=== PATIENT | male | born 1930 | race Caucasian/White ===

== ENCOUNTER 2016-09-18 09:42 | Day surgery (SDC) | payer MEDICARE, BC ==
[~2016-09-18 09:42] MED LIST: Brimonidine 0.2% Ophth Soln 5 ML Bottle EYERT SCH; Cefuroxime 10 MG/ML SYRINGE EYERT SCH; Lidocaine 1% PF 2 ML SDV INJECT SCH; Pilocarpine 4% Ophth Soln 15 ML Bot EYERT SCH
[2016-09-18] MEDS: Polymyxin B/Trimethoprim 10 ML Bottle EYERT SCH ×3 (10:10→11:56)
--- NOTE | 2016-09-18 10:16 | PCM.PREANE ---
Preanesthetic Assessment - Anesthesia/Transfusion/Family Hx Anesthesia History: Prior Anesthesia Without Reaction Family History of Anesthesia Reaction: No Transfusion History: Prior Transfusion Without Reaction - Review of Systems General: No Symptoms Pulmonary: No Symptoms Cardiovascular: No Symptoms Gastrointestinal: No symptoms Neurological: No Symptoms Other: Reports: Easy Bruising, Thyroid Problems (hyperthyroid) - Physical Assessment NPO Status Date: 09/17/16 NPO Status Time: 00:00 Pulse: 58 O2 Sat by Pulse Oximetry: 97 Respiratory Rate: 16 Blood Pressure: 162/67 Temperature: 36.4 C Height: 1.78 m Weight: 73.119 kg ASA Class: 3 Mental Status: Alert & Oriented x3 Dentition: Reports: Normal Dentition Thyro-Mental Finger Breadths: 3 Mouth Opening Finger Breadths: 3 ROM/Head Extension: Full Lungs: Clear to auscultation, Normal respiratory effort Cardiovascular: Regular Rate, Regular Rhythm - Allergies Allergies/Adverse Reactions: Allergies Allergy/AdvReac Type Severity Reaction Status Date / Time clonidine Allergy Cannot Verified 09/17/16 14:32 Remember codeine Allergy Cannot Verified 09/17/16 14:32 Remember procainamide [Procainamide] Allergy Cannot Verified 09/17/16 14:32 Remember quinidine Allergy Anaphylactic Verified 09/17/16 14:32 Shock terazosin [Terazosin] Allergy Cannot Verified 09/17/16 14:32 Remember - Blood Blood Available: No Product(s) Available: None - Anesthesia Plan Pre-Op Medication Ordered: Beta Martin Beta Martin: Metoprolol Med Last Dose Date: 09/18/16 Med Last Dose Time: 07:00 - Acknowledgements Anesthesia Type Planned: MAC Pt an Appropriate Candidate for the Planned Anesthesia: Yes Alternatives and Risks of Anesthesia Discussed w Pt/Guardian: Yes Pt/Guardian Understands and Agrees with Anesthesia Plan: Yes PreAnesthesia Questionnaire HEENT History: Reports: Hard of Hearing, Impaired Vision Other HEENT History: reading glasses,USES HEARING AIDES Cardiovascular History: Reports: Afib, Automatic Implantable Cardioverter Defibrillators, Bypass, CAD, Hypertension, Pacemaker, PTCA Other Cardiovascular History: CARDIOVERSION AND SUBSEQUENT ICD PLACEMENT Gastrointestinal History: Reports: GI Bleed Other Gastrointestinal History: Dark Stool Genitourinary History: Reports: Renal Disease Musculoskeletal History: Reports: Back Pain, Chronic, Other (See Below) Other Musculoskeletal History: shoulder pain right Hematologic History: Reports: Anemia, Other (See Below) Other Hematologic History: thrombocytopenia - Past Surgical History Cardiovascular Surgical History: Reports: AICD, Coronary Artery Bypass GI Surgical History: Reports: Appendectomy, Colonoscopy, Hernia Repair/Other Neurological Surgical History: Reports: Lumbar Spine Musculoskeletal Surgical History: Reports: Other (See Below) - SUBSTANCE USE Smoking Status *Q: Never Smoker Tobacco Use Within Last Twelve Months: Cigarettes Second Hand Smoke Exposure: Yes Days Per Week of Alcohol Use: 0 Number of Drinks Per Day: 1 Total Drinks Per Week: 0 Recreational Drug Use History: No - HOME MEDS Home Medications: Home Meds Flaxseed [Flaxseed Oil] 1,000 mg PO DAILY 09/11/13 [History] Metoprolol Succinate 25 mg PO DAILY 09/11/13 [History] Multivitamin with Minerals [Multiple Vitamin] 1 tab PO DAILY 09/11/13 [History] [place]-3 Fatty Acids [[place]-3] 1,000 mg PO DAILY 09/11/13 [History] Pravastatin [Pravachol] 20 mg PO DAILY 10/20/13 [History] Pantoprazole Sodium [Protonix] 40 mg PO BID #60 suspdr.pkt 10/21/13 [Rx] Amiodarone HCl 100 mg PO DAILY 08/22/15 [History] Aspirin 81 mg PO DAILY 08/22/15 [History] Acetaminophen [Tylenol] 650 mg PO Q4H PRN 09/17/16 [History] Calcium Carbonate [Calcium] 500 mg PO DAILY 09/17/16 [History] Multivitamin [Multivitamins] 1 tab PO DAILY 09/17/16 [History] Rivaroxaban [Xarelto] 20 mg PO DAILY 09/17/16 [History] - CURRENT (IN HOUSE) MEDS Current Meds: Current Medications Brimonidine Tartrate (Alphagan 0.2% Ophth Soln) 0 ml EYERT ASDIRECTED TESSA Stop: 09/18/16 16:00 Cefuroxime Sodium (Zinacef) 0 mg EYERT ASDIRECTED TESSA Stop: 09/18/16 18:00 Lidocaine HCl (Xylocaine-Mpf 1%) 10 ml INJECT ASDIRECTED TESSA Stop: 09/18/16 18:00 Phenylephrine HCl (Shoaib-Synephrine 2.5% Ophth Soln) 0 ml EYERT ASDIRECTED TESSA Stop: 09/18/16 16:00 Pilocarpine HCl (Pilocar 4% Ophth Soln) 0 ml EYERT ASDIRECTED TESSA Stop: 09/18/16 16:00 Polymyxin/Trimethoprim Sulfate (Polytrim Ophth Soln) 0 ml EYERT ASDIRECTED TESSA Stop: 09/18/16 16:00 Last Admin: 09/18/16 10:10 Dose: 1 drop Tetracaine HCl (Tetracaine 0.5% Steri-Unit Mikayla) 0 ml EYERT ASDIRECTED TESSA Stop: 09/18/16 16:00 Tropicamide (Mydriacyl 1% Ophth Soln) 0 ml EYERT ASDIRECTED TESSA Stop: 09/18/16 16:00
[2016-09-18] MEDS: Phenylephrine 2.5% Ophth Soln 2 ML Bot EYERT SCH ×5 (10:17→11:39)
[2016-09-18] MEDS: Tetracaine HCl/PF 0.5% 4 ML Bottle EYERT SCH ×2 (11:32→11:47)
--- NOTE | 2016-09-18 12:01 | PCM48HPAN ---
Post Anesthesia Note - EVALUATION WITHIN 48HRS OF ANESTHETIC Vital Signs in Normal Range: Yes Patient Participated in Evaluation: Yes Respiratory Function Stable: Yes Airway Patent: Yes Cardiovascular Function Stable: Yes Hydration Status Stable: Yes Pain Control Satisfactory: Yes Nausea and Vomiting Control Satisfactory: Yes Mental Status Recovered: Yes
[2016-09-18 12:13] VITALS: BP 148/78
== END 2016-09-18 12:05 | disposition home or self-care (01) ==
LOC: JD.SDS 09:42
PROVIDERS: ATTEND Ophthalmology
DX: H26.9 Unspecified cataract (principal); I10 Essential (primary) hypertension; E78.00 Pure hypercholesterolemia, unspecified; Z90.49 Acquired absence of other specified parts of digestive tract; Z98.890 Other specified postprocedural states; Z79.82 Long term (current) use of aspirin; Z79.899 Other long term (current) drug therapy; Z87.891 Personal history of nicotine dependence
CPT/HCPCS: 66984; C1780; J0697; A9270-GY

== ENCOUNTER 2016-10-25 08:35 | Day surgery (SDC) | payer MEDICARE, BC ==
[~2016-10-25 08:35] MED LIST changes: +Brimonidine 0.2% Ophth Soln 5 ML Bottle EYELF SCH; -Brimonidine 0.2% Ophth Soln 5 ML Bottle EYERT SCH; +Cefuroxime 10 MG/ML SYRINGE EYELF SCH; -Cefuroxime 10 MG/ML SYRINGE EYERT SCH; +Pilocarpine 4% Ophth Soln 15 ML Bot EYELF SCH; -Pilocarpine 4% Ophth Soln 15 ML Bot EYERT SCH
[2016-10-25] MEDS: Polymyxin B/Trimethoprim 10 ML Bottle EYELF SCH ×3 (09:37→11:38)
--- NOTE | 2016-10-25 09:40 | PCM.PREANE ---
Preanesthetic Assessment - Anesthesia/Transfusion/Family Hx Anesthesia History: Prior Anesthesia Without Reaction Family History of Anesthesia Reaction: No Transfusion History: Prior Transfusion Without Reaction Intubation History: Unknown - Review of Systems General: No Symptoms Pulmonary: No Symptoms Cardiovascular: No Symptoms Gastrointestinal: No Symptoms Neurological: No Symptoms Other: Reports: None - Physical Assessment NPO Status Date: 10/24/16 NPO Status Time: 22:00 Pulse: 56 O2 Sat by Pulse Oximetry: 97 Respiratory Rate: 16 Blood Pressure: 163/65 Temperature: 97.4 C Height: 1.78 m Weight: 73.119 kg ASA Class: 2 Mental Status: Alert & Oriented x3 Airway Class: Mallampati = 2 Dentition: Reports: Normal Dentition Thyro-Mental Finger Breadths: 3 Mouth Opening Finger Breadths: 3 ROM/Head Extension: Full Lungs: Clear to Auscultation, Normal Respiratory Effort Cardiovascular: Regular Rate, Regular Rhythm - Allergies Allergies/Adverse Reactions: Allergies Allergy/AdvReac Type Severity Reaction Status Date / Time clonidine Allergy Cannot Verified 09/17/16 14:32 Remember codeine Allergy Cannot Verified 09/17/16 14:32 Remember procainamide [Procainamide] Allergy Cannot Verified 09/17/16 14:32 Remember quinidine Allergy Anaphylactic Verified 09/17/16 14:32 Shock terazosin [Terazosin] Allergy Cannot Verified 09/17/16 14:32 Remember - Anesthesia Plan Beta Martin: Metoprolol Med Last Dose Date: 10/25/16 Med Last Dose Time: 07:30 - Acknowledgements Anesthesia Type Planned: MAC Pt an Appropriate Candidate for the Planned Anesthesia: Yes Alternatives and Risks of Anesthesia Discussed w Pt/Guardian: Yes Pt/Guardian Understands and Agrees with Anesthesia Plan: Yes PreAnesthesia Questionnaire HEENT History: Reports: Hard of Hearing, Impaired Vision Other HEENT History: reading glasses,USES HEARING AIDES Cardiovascular History: Reports: Afib, Automatic Implantable Cardioverter Defibrillators, Bypass, CAD, Hypertension, Pacemaker, PTCA Other Cardiovascular History: CARDIOVERSION AND SUBSEQUENT ICD PLACEMENT Respiratory History: Reports: SOB (pt states rare occassion with exertion) Gastrointestinal History: Reports: GERD (takes medication with success), GI Bleed Other Gastrointestinal History: Dark Stool Genitourinary History: Reports: Renal Disease Musculoskeletal History: Reports: Back Pain, Chronic, Other (See Below) Other Musculoskeletal History: shoulder pain right Hematologic History: Reports: Anemia, Other (See Below) Other Hematologic History: thrombocytopenia - Past Surgical History HEENT Surgical History: Reports: Cataract Surgery Cardiovascular Surgical History: Reports: AICD, Coronary Artery Bypass GI Surgical History: Reports: Appendectomy, Colonoscopy, Hernia Repair/Other Neurological Surgical History: Reports: Lumbar Spine Musculoskeletal Surgical History: Reports: Other (See Below) - SUBSTANCE USE Smoking Status *Q: Former Smoker Tobacco Use Within Last Twelve Months: Cigarettes Second Hand Smoke Exposure: Yes Days Per Week of Alcohol Use: 0 Number of Drinks Per Day: 1 Total Drinks Per Week: 0 Recreational Drug Use History: No - HOME MEDS Home Medications: Home Meds Flaxseed [Flaxseed Oil] 1,000 mg PO DAILY 09/11/13 [History] Metoprolol Succinate 25 mg PO DAILY 09/11/13 [History] Multivitamin with Minerals [Multiple Vitamin] 1 tab PO DAILY 09/11/13 [History] [place]-3 Fatty Acids [[place]-3] 1,000 mg PO DAILY 09/11/13 [History] Pravastatin [Pravachol] 20 mg PO DAILY 10/20/13 [History] Pantoprazole Sodium [Protonix] 40 mg PO BID #60 suspdr.pkt 10/21/13 [Rx] Amiodarone HCl 100 mg PO DAILY 08/22/15 [History] Aspirin 81 mg PO DAILY 08/22/15 [History] Acetaminophen [Tylenol] 650 mg PO Q4H PRN 09/17/16 [History] Calcium Carbonate [Calcium] 500 mg PO DAILY 09/17/16 [History] Rivaroxaban [Xarelto] 20 mg PO DAILY 09/17/16 [History] - CURRENT (IN HOUSE) MEDS Current Meds: Current Medications Cefuroxime Sodium (Zinacef) 0 mg EYELF ASDIRECTED TESSA Stop: 10/25/16 18:00 Lidocaine HCl (Xylocaine-Mpf 1%) 10 ml INJECT ASDIRECTED TESSA Stop: 10/25/16 18:00 Phenylephrine HCl (Shoaib-Synephrine 2.5% Ophth Soln) 0 ml EYELF ASDIRECTED TESSA Stop: 10/25/16 18:00 Pilocarpine HCl (Pilocar 4% Ophth Soln) 0 ml EYELF ASDIRECTED TESSA Stop: 10/25/16 18:00 Polymyxin/Trimethoprim Sulfate (Polytrim Ophth Soln) 0 ml EYELF ASDIRECTED TESSA Stop: 10/25/16 18:00 Tetracaine HCl (Tetracaine 0.5% Steri-Unit Mikayla) 0 ml EYELF ASDIRECTED TESSA Stop: 10/25/16 18:00 Tropicamide (Mydriacyl 1% Ophth Soln) 0 ml EYELF ASDIRECTED TESSA Stop: 10/25/16 18:00 Discontinued Medications Brimonidine Tartrate (Alphagan 0.2% Ophth Soln) 1 ml EYELF ASDIRECTED TESSA
[2016-10-25] MEDS: Phenylephrine 2.5% Ophth Soln 2 ML Bot EYELF SCH ×5 (09:42→11:21)
[2016-10-25] MEDS: Tetracaine HCl/PF 0.5% 4 ML Bottle EYELF SCH ×2 (11:01→11:27)
[2016-10-25 11:58] VITALS: BP 158/69
== END 2016-10-25 11:51 | disposition home or self-care (01) ==
LOC: JD.SDS 08:35
PROVIDERS: ATTEND Ophthalmology
DX: H25.812 Combined forms of age-related cataract, left eye (principal); H02.831 Dermatochalasis of right upper eyelid; H02.834 Dermatochalasis of left upper eyelid; H35.363 Drusen (degenerative) of macula, bilateral; H35.3131 Nonexudative age-related macular degeneration, bilateral, early dry stage; M19.90 Unspecified osteoarthritis, unspecified site; E78.00 Pure hypercholesterolemia, unspecified; I10 Essential (primary) hypertension; I48.91 Unspecified atrial fibrillation; I25.10 Atherosclerotic heart disease of native coronary artery without angina pectoris; K21.9 Gastro-esophageal reflux disease without esophagitis; Z87.442 Personal history of urinary calculi; Z87.891 Personal history of nicotine dependence; Z88.8 Allergy status to other drugs, medicaments and biological substances; Z79.01 Long term (current) use of anticoagulants; Z79.82 Long term (current) use of aspirin; Z79.899 Other long term (current) drug therapy; Z98.41 Cataract extraction status, right eye; Z96.1 Presence of intraocular lens; Z90.49 Acquired absence of other specified parts of digestive tract; Z98.890 Other specified postprocedural states; Z95.810 Presence of automatic (implantable) cardiac defibrillator; Z95.1 Presence of aortocoronary bypass graft
CPT/HCPCS: 66984; A9270; C1780; J0697

== ENCOUNTER 2018-12-30 16:11 | Observation (INO) | payer MEDICARE, BC ==
--- NOTE | 2018-12-30 17:06 | EDM.PDOC ---
ED HPI GENERAL MEDICAL PROBLEM - General Chief Complaint: Gastrointestinal Problem Stated Complaint: BLACK STOOL Time Seen by Provider: 12/30/18 16:36 Source of Information: Reports: Patient, Family, RN Notes Reviewed - History of Present Illness INITIAL COMMENTS - FREE TEXT/NARRATIVE: 88-year-old male comes in with black tarry stools. He is on eliquis blood thinner with history of pacemaker, prior bypass surgery and also history of stents. He states his stools started getting a little bit dark about 2 weeks ago. Today there has been at least one episode of what he describes as "black and tarry". There has been no visible blood. No abdominal or chest discomfort. He does not feel weak lightheaded or dizzy. He does have history of a prior upper GI bleed about 4 years ago. That time he was on both eliquis and aspirin. He states that time he waited too long. Very weak, lightheaded and dizzy he states his hemoglobin was down to about 4.9. He was transfused 4 units of blood. Endoscopy did not show bleeding ulcer. He did also have colonoscopy. He was subsequently started back on eliquis and has done well up until now. - Related Data Allergies Allergy/AdvReac Type Severity Reaction Status Date / Time clonidine Allergy Cannot Verified 12/30/18 16:31 Remember codeine Allergy Cannot Verified 12/30/18 16:31 Remember pravastatin Allergy Itching Verified 12/30/18 16:31 procainamide [Procainamide] Allergy Cannot Verified 12/30/18 16:31 Remember quinidine Allergy Anaphylactic Verified 12/30/18 16:31 Shock terazosin [Terazosin] Allergy Cannot Verified 12/30/18 16:31 Remember Home Meds: Home Meds Flaxseed [Flaxseed Oil] 1,000 mg PO DAILY 09/11/13 [History] Metoprolol Succinate 50 mg PO BID 09/11/13 [History] Multivitamin with Minerals [Multiple Vitamin] 1 tab PO DAILY 09/11/13 [History] [place]-3 Fatty Acids [[place]-3] 1,000 mg PO DAILY 09/11/13 [History] Pantoprazole Sodium [Protonix] 40 mg PO BID #60 suspdr.pkt 10/21/13 [Rx] Amiodarone HCl 100 mg PO DAILY 08/22/15 [History] Rivaroxaban [Xarelto] 20 mg PO DAILY 09/17/16 [History] Lisinopril 10 mg PO DAILY 12/30/18 [History] Past Medical History HEENT History: Reports: Hard of Hearing, Impaired Vision Other HEENT History: reading glasses,USES HEARING AIDES Cardiovascular History: Reports: Afib, Automatic Implantable Cardioverter Defibrillators, Bypass, CAD, Hypertension, Pacemaker, PTCA Other Cardiovascular History: CARDIOVERSION AND SUBSEQUENT ICD PLACEMENT Respiratory History: Reports: SOB Gastrointestinal History: Reports: GERD, GI Bleed Other Gastrointestinal History: Dark Stool Genitourinary History: Reports: Renal Disease Musculoskeletal History: Reports: Back Pain, Chronic, Other (See Below) Other Musculoskeletal History: shoulder pain right Hematologic History: Reports: Anemia, Other (See Below) Other Hematologic History: thrombocytopenia - Past Surgical History HEENT Surgical History: Reports: Cataract Surgery Cardiovascular Surgical History: Reports: AICD, Coronary Artery Bypass GI Surgical History: Reports: Appendectomy, Colonoscopy, Hernia Repair/Other Neurological Surgical History: Reports: Lumbar Spine Musculoskeletal Surgical History: Reports: Other (See Below) Social & Family History - Family History Family Medical History: Noncontributory Cardiac: Reports: [place] Hematologic: Reports: Anemia Other Hematologic Family History: thrombocytopenia Oncologic: Reports: Colon - Tobacco Use Smoking Status *Q: Former Smoker Used Tobacco, but Quit: Yes Month/Year Tobacco Last Used: 03/1979 - Caffeine Use Caffeine Use: Reports: Coffee - Recreational Drug Use Recreational Drug Use: No - Living Situation & Occupation Living situation: Reports: Occupation: Retired ED ROS GENERAL - Review of Systems Review Of Systems: See Below Constitutional: Denies: Fever, Chills, Diaphoresis HEENT: Reports: No Symptoms Respiratory: Denies: Shortness of Breath Cardiovascular: Denies: Chest Pain GI/Abdominal: Reports: Melena. Denies: Abdominal Pain, Nausea, Vomiting Musculoskeletal: Reports: No Symptoms Skin: Reports: No Symptoms Neurological: Denies: Dizziness, Numbness, Tingling, Trouble Speaking, Difficulty Walking, Weakness ED EXAM, GI/ABD - Physical Exam Exam: See Below General Appearance: Alert, No Apparent Distress Eyes: Bilateral: Normal Appearance Throat/Mouth: Normal Inspection, Normal Oropharynx Head: Atraumatic Neck: Supple, Full Range of Motion Respiratory/Chest: No Respiratory Distress, Lungs Clear, Normal Breath Sounds Cardiovascular: Regular Rate, Rhythm GI/Abdominal Exam: Soft, Non-Tender. No: Guarding Rectal (Males) Exam: Heme + Stool (Stool is "light black, no visible blood, no palpable mass or unusual tenderness) Back Exam: No: CVA Tenderness (L), CVA Tenderness (R) Extremities: Normal Inspection, Normal Range of Motion. No: Pedal Edema, Leg Pain Neurological: Alert, Oriented, No Motor/Sensory Deficits Skin Exam: Warm, Dry, Normal Color EKG INTERPRETATION EKG Date: 12/30/18 Rhythm: Other (Paced rhythm, rate 54) QRS: RBBB Course - Vital Signs Last Recorded V/S: Last Vital Signs Temp 98.1 F 12/30/18 16:28 Pulse 58 L 12/30/18 16:28 Resp 14 12/30/18 16:28 BP 157/69 H 12/30/18 16:28 Pulse Ox 98 12/30/18 16:28 Orthostatic Blood Pressure [ 133/68 Standing] Orthostatic Blood Pressure [ 147/63 Sitting] Orthostatic Blood Pressure [ 135/57 Supine] - Orders/Labs/Meds Orders: Active Orders 24 hr Category Date Time Status Admission Status [Patient Status] [ADT] Routine ADT 12/30/18 19:42 Active EKG 12 Lead [EKG Documentation Completion] [RC] STAT Care 12/30/18 16:46 Active Peripheral IV Care [RC] . DIRECTED Care 12/30/18 16:46 Active Sodium Chloride 0.9% [Saline Flush] Med 12/30/18 16:45 Active 10 ml FLUSH ASDIRECTED PRN Peripheral IV Insertion Adult [OM.PC] Stat Oth 12/30/18 16:46 Ordered Medication Orders Sodium Chloride (Saline Flush) 10 ml FLUSH ASDIRECTED PRN PRN Reason: Keep Vein Open Last Admin: 12/30/18 17:17 Dose: 10 ml Labs: Laboratory Tests 12/30/18 12/30/18 12/30/18 Range/Units 17:00 17:00 17:00 WBC 6.00 (4.23-9.07) K/mm3 RBC 4.36 L (4.63-6.08) M/mm3 Hgb 13.0 L D (13.7-17.5) gm/dl Hct 39.3 L (40.1-51.0) % MCV 90.1 D (79.0-92.2) fl MCH 29.8 (25.7-32.2) pg MCHC 33.1 (32.2-35.5) g/dl RDW Std Deviation 44.7 H (35.1-43.9) fL Plt Count 139 L (163-337) K/mm3 MPV 9.8 (9.4-12.3) fl Neut % (Auto) 41.5 (34.0-67.9) % Lymph % (Auto) 36.7 (21.8-53.1) % [place] % (Auto) 13.0 H (5.3-12.2) % Eos % (Auto) 8.5 H (0.8-7.0) Baso % (Auto) 0.3 (0.1-1.2) % Neut # (Auto) 2.49 (1.78-5.38) K/mm3 Lymph # (Auto) 2.20 (1.32-3.57) K/mm3 [place] # (Auto) 0.78 (0.30-0.82) K/mm3 Eos # (Auto) 0.51 (0.04-0.54) K/mm3 Baso # (Auto) 0.02 (0.01-0.08) K/mm3 PT 13.3 H (9.7-12.0) SECONDS INR 1.23 Sodium 141 (136-145) mEq/L Potassium 4.7 (3.5-5.1) mEq/L Chloride 104 (98-107) mEq/L Carbon Dioxide 28 (21-32) mEq/L Anion Gap 13.7 (5-15) BUN 27 H (7-18) mg/dL Creatinine 1.3 (0.7-1.3) mg/dL Est Cr Clr Drug Dosing 37.07 mL/min Estimated GFR (MDRD) 52 (>60) mL/min BUN/Creatinine Ratio 20.8 H (14-18) Glucose 102 (83-115) mg/dL Calcium 9.2 (8.5-10.1) mg/dL Total Bilirubin 0.4 (0.2-1.0) mg/dL AST 28 (15-37) U/L ALT 33 (16-63) U/L Alkaline Phosphatase 71 (46-116) U/L Total Protein 6.6 (6.4-8.2) g/dl Albumin 3.7 (3.4-5.0) g/dl Globulin 2.9 gm/dL Albumin/Globulin Ratio 1.3 (1-2) Blood Type Gel Antibody Screen 12/30/18 Range/Units 17:00 WBC (4.23-9.07) K/mm3 RBC (4.63-6.08) M/mm3 Hgb (13.7-17.5) gm/dl Hct (40.1-51.0) % MCV (79.0-92.2) fl MCH (25.7-32.2) pg MCHC (32.2-35.5) g/dl RDW Std Deviation (35.1-43.9) fL Plt Count (163-337) K/mm3 MPV (9.4-12.3) fl Neut % (Auto) (34.0-67.9) % Lymph % (Auto) (21.8-53.1) % [place] % (Auto) (5.3-12.2) % Eos % (Auto) (0.8-7.0) Baso % (Auto) (0.1-1.2) % Neut # (Auto) (1.78-5.38) K/mm3 Lymph # (Auto) (1.32-3.57) K/mm3 [place] # (Auto) (0.30-0.82) K/mm3 Eos # (Auto) (0.04-0.54) K/mm3 Baso # (Auto) (0.01-0.08) K/mm3 PT (9.7-12.0) SECONDS INR Sodium (136-145) mEq/L Potassium (3.5-5.1) mEq/L Chloride (98-107) mEq/L Carbon Dioxide (21-32) mEq/L Anion Gap (5-15) BUN (7-18) mg/dL Creatinine (0.7-1.3) mg/dL Est Cr Clr Drug Dosing mL/min Estimated GFR (MDRD) (>60) mL/min BUN/Creatinine Ratio (14-18) Glucose (83-115) mg/dL Calcium (8.5-10.1) mg/dL Total Bilirubin (0.2-1.0) mg/dL AST (15-37) U/L ALT (16-63) U/L Alkaline Phosphatase (46-116) U/L Total Protein (6.4-8.2) g/dl Albumin (3.4-5.0) g/dl Globulin gm/dL Albumin/Globulin Ratio (1-2) Blood Type O POSITIVE Gel Antibody Screen Negative Meds: Medications Generic Name Dose Route Start Last Admin Trade Name Freq PRN Reason Stop Dose Admin Sodium Chloride 10 ml 12/30/18 16:45 12/30/18 17:17 Saline Flush FLUSH 10 ml ASDIRECTED PRN Administration Keep Vein Open Discontinued Medications Generic Name Dose Route Start Last Admin Trade Name Freq PRN Reason Stop Dose Admin Pantoprazole Sodium 80 mg 12/30/18 18:48 12/30/18 18:59 Protonix Iv IVPUSH 12/30/18 18:49 80 mg ONETIME ONE Administration - Re-Assessments/Exams Free Text/Narrative Re-Assessment/Exam: 12/30/18 19:51 Hemoglobin came back at 13. The statics were good with no drop in blood pressure lying to standing or increase in pulse from lying to standing realizing that he is in a paced rhythm with rate running about 54 at all times. He does not feel weak lightheaded or dizzy standing. There has been no nausea or vomiting. I did discuss this with both Dr. Valerio, Hospitalist and Dr. Metzger, General Surgeon alteration workroom supervisor. Dr Metzger suggests we admit for observation. Recheck his hgb in AM, see how he does in terms of amount of evidence for further rectal bleeding. His xarelto will be stopped. Have ordered protonix 80 mg IV. Departure - Departure Time of Disposition: 18:47 Disposition: Refer to Observation Condition: Fair Clinical Impression: Upper GI hemorrhage - Discharge Information Referrals: Negro De Leon Jr, MD [Primary Care Provider] - Forms: ED Department Discharge ED Communication - Discussed Case With (1) Discussed Case With (1): Admitting Provider ([place], decision to admit at [facility] 19:15.) - My Orders Last 24 Hours: My Active Orders 12/30/18 16:45 Sodium Chloride 0.9% [Saline Flush] 10 ml FLUSH ASDIRECTED PRN 12/30/18 16:46 EKG 12 Lead [EKG Documentation Completion] [RC] STAT Peripheral IV Care [RC] . DIRECTED Peripheral IV Insertion Adult [OM.PC] Stat 12/30/18 19:42 Admission Status [Patient Status] [ADT] Routine - Assessment/Plan Last 24 Hours: My Active Orders 12/30/18 16:45 Sodium Chloride 0.9% [Saline Flush] 10 ml FLUSH ASDIRECTED PRN 12/30/18 16:46 EKG 12 Lead [EKG Documentation Completion] [RC] STAT Peripheral IV Care [RC] . DIRECTED Peripheral IV Insertion Adult [OM.PC] Stat 12/30/18 19:42 Admission Status [Patient Status] [ADT] Routine
[2018-12-30] MEDS: Sodium Chloride 0.9% 10 ML Syringe FLUSH PRN (17:17)
[2018-12-30] MEDS: Pantoprazole 40 MG Vial IVPUSH ONE (18:59)
--- NOTE | 2018-12-30 21:32 | PCM.HP.2 ---
H&P History of Present Illness - General Date of Service: 12/30/18 Admit Problem/Dx: Admission Diagnosis/Problem Admission Diagnosis/Problem Rectal hemorrhage - History of Present Illness Initial Comments - Free Text/Narative: 88-year-old male presents to the emergency room with 2 weeks of dark, almost black stools. He states that approximately 2 weeks ago his stools became a little dark. Over the last 2 weeks ago and slowly getting worse until today when it was almost black. He states that he seems to be a little more sleepy than normal and falls asleep easily, but denies actual being tired. He denies any chest pain, shortness of breath, wheezing, abdominal pain, nausea, vomiting , or bright red blood. He has only had one formed stool today. He is currently on Xarelto because of atrial fibrillation. 4 years ago when he was on Xarelto and aspirin 325 mg he had a similar but more prolonged episode of dark stools. At that time his hemoglobin dropped to 4.9. Endoscopy was performed at that time. Patient continues on Xarelto today for his atrial fibrillation. He also has a pacemaker/defibrillator in place. Initial lab work in the emergency room, WBC 6.0, hemoglobin 13.0 with repeat 4 hours later at 12.9, platelet count 139, INR 1.23, sodium 141, potassium 4.7, chloride 104, carbon dioxide 28, BUN 27, creatinine 1.3. Dr. Lira the emergency room physician contacted Dr. Metzger the general surgeon who felt that he should be admitted for observation, have a recheck of his hemoglobin the morning, and see how much rectal bleeding he has overnight. His Xarelto was stopped and he was given Protonix 40 mg IV.Blood pressure was 140/58, pulse of 53, orthostatics were done and were negative. Rectal exam done in the emergency room showed dark brown/light black stool that was heme positive. - Related Data Allergies/Adverse Reactions: Allergies Allergy/AdvReac Type Severity Reaction Status Date / Time clonidine Allergy Cannot Verified 12/30/18 16:31 Remember codeine Allergy Cannot Verified 12/30/18 16:31 Remember pravastatin Allergy Itching Verified 12/30/18 16:31 procainamide [Procainamide] Allergy Cannot Verified 12/30/18 16:31 Remember quinidine Allergy Anaphylactic Verified 12/30/18 16:31 Shock terazosin [Terazosin] Allergy Cannot Verified 12/30/18 16:31 Remember Home Medications: Home Meds Flaxseed [Flaxseed Oil] 1,000 mg PO DAILY 09/11/13 [History] Metoprolol Succinate 50 mg PO BID 09/11/13 [History] Multivitamin with Minerals [Multiple Vitamin] 1 tab PO DAILY 09/11/13 [History] [place]-3 Fatty Acids [[place]-3] 1,000 mg PO DAILY 09/11/13 [History] Pantoprazole Sodium [Protonix] 40 mg PO BID #60 suspdr.pkt 10/21/13 [Rx] Amiodarone HCl 100 mg PO DAILY 08/22/15 [History] Rivaroxaban [Xarelto] 20 mg PO DAILY 09/17/16 [History] Lisinopril 10 mg PO DAILY 12/30/18 [History] Past Medical History HEENT History: Reports: Hard of Hearing, Impaired Vision Other HEENT History: reading glasses,USES HEARING AIDES Cardiovascular History: Reports: Afib, Automatic Implantable Cardioverter Defibrillators, Bypass, CAD, Hypertension, Pacemaker, PTCA Other Cardiovascular History: CARDIOVERSION AND SUBSEQUENT ICD PLACEMENT Respiratory History: Reports: SOB Gastrointestinal History: Reports: GERD, GI Bleed Other Gastrointestinal History: Dark Stool Genitourinary History: Reports: Renal Disease Musculoskeletal History: Reports: Back Pain, Chronic, Other (See Below) Other Musculoskeletal History: shoulder pain right Hematologic History: Reports: Anemia, Other (See Below) Other Hematologic History: thrombocytopenia - Past Surgical History HEENT Surgical History: Reports: Cataract Surgery Cardiovascular Surgical History: Reports: AICD, Coronary Artery Bypass GI Surgical History: Reports: Appendectomy, Colonoscopy, Hernia Repair/Other Neurological Surgical History: Reports: Lumbar Spine Musculoskeletal Surgical History: Reports: Other (See Below) Social & Family History - Family History Family Medical History: Noncontributory Cardiac: Reports: [place] Hematologic: Reports: Anemia Other Hematologic Family History: thrombocytopenia Oncologic: Reports: Colon - Tobacco Use Smoking Status *Q: Former Smoker Used Tobacco, but Quit: Yes Month/Year Tobacco Last Used: 03/1979 - Caffeine Use Caffeine Use: Reports: Coffee - Recreational Drug Use Recreational Drug Use: No - Living Situation & Occupation Living situation: Reports: Occupation: Retired H&P Review of Systems - Review of Systems: Review Of Systems: ROS reveals no pertinent complaints other than HPI. Exam - Exam Exam: See Below - Vital Signs Vital Signs: Last Vital Signs Temp 98.1 F 12/30/18 16:28 Pulse 58 L 12/30/18 16:28 Resp 14 12/30/18 16:28 BP 157/69 H 12/30/18 16:28 Pulse Ox 98 12/30/18 16:28 Orthostatic Blood Pressure [ 133/68 Standing] Orthostatic Blood Pressure [ 147/63 Sitting] Orthostatic Blood Pressure [ 135/57 Supine] Weight: 150 lb - Exam General: Alert, Oriented, 4 HEENT: Conjunctiva Clear, Hearing Intact, Mucosa Moist & [place] Neck: Supple, Trachea Midline, 2 Lungs: Clear to Auscultation, Normal Respiratory Effort Cardiovascular: Regular Rate, Regular Rhythm GI/Abdominal Exam: Normal Bowel Sounds, Soft, Non-Tender, No Distention Extremities: Normal Inspection, Normal Range of Motion, Non-Tender, No Pedal Edema Skin: Warm, Dry, Intact Neuro Extensive - Mental Status: Alert, Oriented x3 - Patient Data Lab Results Last 24 hrs: Laboratory Results - last 24 hr 12/30/18 12/30/18 12/30/18 Range/Units 17:00 17:00 17:00 WBC 6.00 (4.23-9.07) K/mm3 RBC 4.36 L (4.63-6.08) M/mm3 Hgb 13.0 L D (13.7-17.5) gm/dl Hct 39.3 L (40.1-51.0) % MCV 90.1 D (79.0-92.2) fl MCH 29.8 (25.7-32.2) pg MCHC 33.1 (32.2-35.5) g/dl RDW Std Deviation 44.7 H (35.1-43.9) fL Plt Count 139 L (163-337) K/mm3 MPV 9.8 (9.4-12.3) fl Neut % (Auto) 41.5 (34.0-67.9) % Lymph % (Auto) 36.7 (21.8-53.1) % [place] % (Auto) 13.0 H (5.3-12.2) % Eos % (Auto) 8.5 H (0.8-7.0) Baso % (Auto) 0.3 (0.1-1.2) % Neut # (Auto) 2.49 (1.78-5.38) K/mm3 Lymph # (Auto) 2.20 (1.32-3.57) K/mm3 [place] # (Auto) 0.78 (0.30-0.82) K/mm3 Eos # (Auto) 0.51 (0.04-0.54) K/mm3 Baso # (Auto) 0.02 (0.01-0.08) K/mm3 PT 13.3 H (9.7-12.0) SECONDS INR 1.23 Sodium 141 (136-145) mEq/L Potassium 4.7 (3.5-5.1) mEq/L Chloride 104 (98-107) mEq/L Carbon Dioxide 28 (21-32) mEq/L Anion Gap 13.7 (5-15) BUN 27 H (7-18) mg/dL Creatinine 1.3 (0.7-1.3) mg/dL Est Cr Clr Drug Dosing 37.07 mL/min Estimated GFR (MDRD) 52 (>60) mL/min BUN/Creatinine Ratio 20.8 H (14-18) Glucose 102 (83-115) mg/dL Calcium 9.2 (8.5-10.1) mg/dL Total Bilirubin 0.4 (0.2-1.0) mg/dL AST 28 (15-37) U/L ALT 33 (16-63) U/L Alkaline Phosphatase 71 (46-116) U/L Total Protein 6.6 (6.4-8.2) g/dl Albumin 3.7 (3.4-5.0) g/dl Globulin 2.9 gm/dL Albumin/Globulin Ratio 1.3 (1-2) Blood Type Gel Antibody Screen 12/30/18 12/30/18 Range/Units 17:00 21:10 WBC (4.23-9.07) K/mm3 RBC (4.63-6.08) M/mm3 Hgb 12.9 L (13.7-17.5) gm/dl Hct 39.2 L (40.1-51.0) % MCV (79.0-92.2) fl MCH (25.7-32.2) pg MCHC (32.2-35.5) g/dl RDW Std Deviation (35.1-43.9) fL Plt Count (163-337) K/mm3 MPV (9.4-12.3) fl Neut % (Auto) (34.0-67.9) % Lymph % (Auto) (21.8-53.1) % [place] % (Auto) (5.3-12.2) % Eos % (Auto) (0.8-7.0) Baso % (Auto) (0.1-1.2) % Neut # (Auto) (1.78-5.38) K/mm3 Lymph # (Auto) (1.32-3.57) K/mm3 [place] # (Auto) (0.30-0.82) K/mm3 Eos # (Auto) (0.04-0.54) K/mm3 Baso # (Auto) (0.01-0.08) K/mm3 PT (9.7-12.0) SECONDS INR Sodium (136-145) mEq/L Potassium (3.5-5.1) mEq/L Chloride (98-107) mEq/L Carbon Dioxide (21-32) mEq/L Anion Gap (5-15) BUN (7-18) mg/dL Creatinine (0.7-1.3) mg/dL Est Cr Clr Drug Dosing mL/min Estimated GFR (MDRD) (>60) mL/min BUN/Creatinine Ratio (14-18) Glucose (83-115) mg/dL Calcium (8.5-10.1) mg/dL Total Bilirubin (0.2-1.0) mg/dL AST (15-37) U/L ALT (16-63) U/L Alkaline Phosphatase (46-116) U/L Total Protein (6.4-8.2) g/dl Albumin (3.4-5.0) g/dl Globulin gm/dL Albumin/Globulin Ratio (1-2) Blood Type O POSITIVE Gel Antibody Screen Negative Result Diagrams: 12/30/18 21:10 12/30/18 17:00 Problem List Initiated/Reviewed/Updated: Yes Orders Last 24hrs: Active Orders 24 hr Category Date Time Status Admission Status [Patient Status] [ADT] Routine ADT 12/30/18 19:42 Active EKG 12 Lead [EKG Documentation Completion] [RC] STAT Care 12/30/18 16:46 Active Peripheral IV Care [RC] . DIRECTED Care 12/30/18 16:46 Active Sodium Chloride 0.9% [Saline Flush] Med 12/30/18 16:45 Active 10 ml FLUSH ASDIRECTED PRN Peripheral IV Insertion Adult [OM.PC] Stat Oth 12/30/18 16:46 Ordered Medication Orders Sodium Chloride (Saline Flush) 10 ml FLUSH ASDIRECTED PRN PRN Reason: Keep Vein Open Last Admin: 12/30/18 17:17 Dose: 10 ml Assessment/Plan Comment:: Assessment * Upper GI bleed secondary to Xarelto * Hypertension * Chronic renal insufficiency * Atrial fibrillation * Pacemaker/defibrillation with heart rate in the 50s at times * History of coronary artery disease Plan * Refer for observation on telemetry * Follow H&H and get a CBC, CMP, magnesium in the morning * Protonix 40 mg IV every 12 hours. He was given 80 mg in the emergency room. * Hold Xarelto and fish oil * Consider consulting surgery in the morning. * Interrogate pacemaker * Clear liquid diet without red dye * VTE prophylaxis with compression stockings * CODE STATUS: full code * Length of stay 24-48 hours - Mortality Measure Prognosis:: Good
[2018-12-30] MEDS ORDERED: Acetaminophen 325 MG Tab PO PRN (21:43)
[2018-12-30] MEDS ORDERED: Ondansetron 4 MG/2 ML SDV IV PRN (21:43)
[2018-12-30] MEDS: Metoprolol Succinate 50 MG Tab.ER PO ONE (22:33)
[2018-12-31] MEDS: METOPROLOL 100 MG PO ONE (05:32)
[2018-12-31] MEDS: METOPROLOL 100 MG PO SCH ×2 (05:33→10:39)
--- NOTE | 2018-12-31 07:46 | PCM.PN ---
- General Info Date of Service: 12/31/18 - Patient Data Vitals - Most Recent: Last Vital Signs Temp 36.4 C 12/31/18 04:08 Pulse 48 L 12/31/18 04:08 Resp 16 12/31/18 04:08 BP 114/44 L 12/31/18 04:08 Pulse Ox 97 12/31/18 04:08 Orthostatic Blood Pressure [ 133/68 Standing] Orthostatic Blood Pressure [ 147/63 Sitting] Orthostatic Blood Pressure [ 135/57 Supine] Weight - Most Recent: 67.812 kg I&O - Last 24 Hours: Intake & Output 12/30/18 12/31/18 12/31/18 22:59 06:59 14:59 Intake Total 850 Output Total 1000 Balance -150 Lab Results Last 24 Hours: Laboratory Results - last 24 hr 12/30/18 12/30/18 12/30/18 Range/Units 17:00 17:00 17:00 WBC 6.00 (4.23-9.07) K/mm3 RBC 4.36 L (4.63-6.08) M/mm3 Hgb 13.0 L D (13.7-17.5) gm/dl Hct 39.3 L (40.1-51.0) % MCV 90.1 D (79.0-92.2) fl MCH 29.8 (25.7-32.2) pg MCHC 33.1 (32.2-35.5) g/dl RDW Std Deviation 44.7 H (35.1-43.9) fL Plt Count 139 L (163-337) K/mm3 MPV 9.8 (9.4-12.3) fl Neut % (Auto) 41.5 (34.0-67.9) % Lymph % (Auto) 36.7 (21.8-53.1) % [place] % (Auto) 13.0 H (5.3-12.2) % Eos % (Auto) 8.5 H (0.8-7.0) Baso % (Auto) 0.3 (0.1-1.2) % Neut # (Auto) 2.49 (1.78-5.38) K/mm3 Lymph # (Auto) 2.20 (1.32-3.57) K/mm3 [place] # (Auto) 0.78 (0.30-0.82) K/mm3 Eos # (Auto) 0.51 (0.04-0.54) K/mm3 Baso # (Auto) 0.02 (0.01-0.08) K/mm3 Manual Slide Review PT 13.3 H (9.7-12.0) SECONDS INR 1.23 Sodium 141 (136-145) mEq/L Potassium 4.7 (3.5-5.1) mEq/L Chloride 104 (98-107) mEq/L Carbon Dioxide 28 (21-32) mEq/L Anion Gap 13.7 (5-15) BUN 27 H (7-18) mg/dL Creatinine 1.3 (0.7-1.3) mg/dL Est Cr Clr Drug Dosing 37.07 mL/min Estimated GFR (MDRD) 52 (>60) mL/min BUN/Creatinine Ratio 20.8 H (14-18) Glucose 102 (83-115) mg/dL Calcium 9.2 (8.5-10.1) mg/dL Magnesium (1.8-2.4) mg/dl Total Bilirubin 0.4 (0.2-1.0) mg/dL AST 28 (15-37) U/L ALT 33 (16-63) U/L Alkaline Phosphatase 71 (46-116) U/L Total Protein 6.6 (6.4-8.2) g/dl Albumin 3.7 (3.4-5.0) g/dl Globulin 2.9 gm/dL Albumin/Globulin Ratio 1.3 (1-2) Blood Type Gel Antibody Screen 12/30/18 12/30/18 12/31/18 Range/Units 17:00 21:10 04:25 WBC 4.48 (4.23-9.07) K/mm3 RBC 3.57 L (4.63-6.08) M/mm3 Hgb 12.9 L 10.6 L D (13.7-17.5) gm/dl Hct 39.2 L 32.2 L (40.1-51.0) % MCV 90.2 (79.0-92.2) fl MCH 29.7 (25.7-32.2) pg MCHC 32.9 (32.2-35.5) g/dl RDW Std Deviation 43.7 (35.1-43.9) fL Plt Count 96 L (163-337) K/mm3 MPV 9.7 (9.4-12.3) fl Neut % (Auto) 39.6 (34.0-67.9) % Lymph % (Auto) 38.4 (21.8-53.1) % [place] % (Auto) 12.7 H (5.3-12.2) % Eos % (Auto) 8.7 H (0.8-7.0) Baso % (Auto) 0.4 (0.1-1.2) % Neut # (Auto) 1.77 L (1.78-5.38) K/mm3 Lymph # (Auto) 1.72 (1.32-3.57) K/mm3 [place] # (Auto) 0.57 (0.30-0.82) K/mm3 Eos # (Auto) 0.39 (0.04-0.54) K/mm3 Baso # (Auto) 0.02 (0.01-0.08) K/mm3 Manual Slide Review Abnormal smear PT (9.7-12.0) SECONDS INR Sodium (136-145) mEq/L Potassium (3.5-5.1) mEq/L Chloride (98-107) mEq/L Carbon Dioxide (21-32) mEq/L Anion Gap (5-15) BUN (7-18) mg/dL Creatinine (0.7-1.3) mg/dL Est Cr Clr Drug Dosing mL/min Estimated GFR (MDRD) (>60) mL/min BUN/Creatinine Ratio (14-18) Glucose (83-115) mg/dL Calcium (8.5-10.1) mg/dL Magnesium (1.8-2.4) mg/dl Total Bilirubin (0.2-1.0) mg/dL AST (15-37) U/L ALT (16-63) U/L Alkaline Phosphatase (46-116) U/L Total Protein (6.4-8.2) g/dl Albumin (3.4-5.0) g/dl Globulin gm/dL Albumin/Globulin Ratio (1-2) Blood Type O POSITIVE Gel Antibody Screen Negative 12/31/18 Range/Units 04:25 WBC (4.23-9.07) K/mm3 RBC (4.63-6.08) M/mm3 Hgb (13.7-17.5) gm/dl Hct (40.1-51.0) % MCV (79.0-92.2) fl MCH (25.7-32.2) pg MCHC (32.2-35.5) g/dl RDW Std Deviation (35.1-43.9) fL Plt Count (163-337) K/mm3 MPV (9.4-12.3) fl Neut % (Auto) (34.0-67.9) % Lymph % (Auto) (21.8-53.1) % [place] % (Auto) (5.3-12.2) % Eos % (Auto) (0.8-7.0) Baso % (Auto) (0.1-1.2) % Neut # (Auto) (1.78-5.38) K/mm3 Lymph # (Auto) (1.32-3.57) K/mm3 [place] # (Auto) (0.30-0.82) K/mm3 Eos # (Auto) (0.04-0.54) K/mm3 Baso # (Auto) (0.01-0.08) K/mm3 Manual Slide Review PT (9.7-12.0) SECONDS INR Sodium 141 (136-145) mEq/L Potassium 3.9 (3.5-5.1) mEq/L Chloride 107 (98-107) mEq/L Carbon Dioxide 26 (21-32) mEq/L Anion Gap 11.9 (5-15) BUN 23 H (7-18) mg/dL Creatinine 1.1 (0.7-1.3) mg/dL Est Cr Clr Drug Dosing 43.67 mL/min Estimated GFR (MDRD) > 60 (>60) mL/min BUN/Creatinine Ratio 20.9 H (14-18) Glucose 86 (83-115) mg/dL Calcium 8.6 (8.5-10.1) mg/dL Magnesium 1.7 L (1.8-2.4) mg/dl Total Bilirubin 0.4 (0.2-1.0) mg/dL AST 26 (15-37) U/L ALT 24 (16-63) U/L Alkaline Phosphatase 53 (46-116) U/L Total Protein 5.1 L (6.4-8.2) g/dl Albumin 2.9 L (3.4-5.0) g/dl Globulin 2.2 gm/dL Albumin/Globulin Ratio 1.3 (1-2) Blood Type Gel Antibody Screen Med Orders - Current: Current Medications Acetaminophen (Tylenol) 650 mg PO Q4H PRN PRN Reason: Pain (Mild 1-3)/fever Amiodarone HCl (Cordarone) 100 mg PO DAILY [facility] Lisinopril (Prinivil) 10 mg PO DAILY [facility] Ondansetron HCl (Zofran) 4 mg IV Q4H PRN PRN Reason: Nausea/Vomiting Pantoprazole Sodium (Protonix Iv) 40 mg IVPUSH Q12H [facility] Metoprolol Xl 100 Mg (Own Med) 0 each PO BID [facility] Sodium Chloride (Saline Flush) 10 ml FLUSH ASDIRECTED PRN PRN Reason: Keep Vein Open Last Admin: 12/30/18 17:17 Dose: 10 ml Discontinued Medications Metoprolol Succinate (Toprol Xl) 50 mg PO BID [facility] Metoprolol Succinate (Toprol Xl) 50 mg PO ONETIME ONE Stop: 12/30/18 22:13 Last Admin: 12/30/18 22:33 Dose: 50 mg Metoprolol Xl 100 Mg (Own Med) 50 each PO BID [facility] Last Admin: 12/31/18 05:33 Dose: Not Given Metoprolol Xl 100 Mg (Own Med) 50 each PO ONETIME ONE Stop: 12/30/18 22:31 Last Admin: 12/31/18 05:32 Dose: Not Given Pantoprazole Sodium (Protonix Iv) 80 mg IVPUSH ONETIME ONE Stop: 12/30/18 18:49 Last Admin: 12/30/18 18:59 Dose: 80 mg - Plan Plan:: Assessment * Upper GI bleed secondary to Xarelto * Hypertension * Chronic renal insufficiency * Atrial fibrillation * Pacemaker/defibrillation with heart rate in the 50s at times * History of coronary artery disease Plan * Refer for observation on telemetry * Follow H&H and get a CBC, CMP, magnesium in the morning * Protonix 40 mg IV every 12 hours. He was given 80 mg in the emergency room. * Hold Xarelto and fish oil * Consider consulting surgery in the morning. * Interrogate pacemaker * Clear liquid diet without red dye * VTE prophylaxis with compression stockings * CODE STATUS: full code * Length of stay 24-48 hours
[2018-12-31] MEDS: Pantoprazole 40 MG Vial IVPUSH SCH (08:25)
[2018-12-31] MEDS ORDERED: Metoprolol Succinate 25 MG Tab.ER PO SCH (09:00)
[2018-12-31] MEDS: Lisinopril 10 MG Tab **PTOM PO SCH (10:34)
[2018-12-31] MEDS: Amiodarone 200 MG Tab **PTOM PO SCH (10:35)
[2018-12-31 11:30] VITALS: PULSE 50
[2018-12-31] MEDS: Magnesium Sulfate/Water 2 GM in Premix Bag 1 BAG IV ONE (12:13)
[2018-12-31] MEDS: Lactated Ringers 1,000 ML IV SCH (13:10)
--- NOTE | 2018-12-31 13:46 | PCM.CONS ---
H&P History of Present Illness - General Date of Service: 12/31/18 Admit Problem/Dx: Admission Diagnosis/Problem Admission Diagnosis/Problem Rectal hemorrhage Source of Information: Patient History Limitations: Reports: No Limitations - History of Present Illness Onset of Symptoms: Reports: Gradual Symptom Onset Date: 12/17/18 Duration of Symptoms: Reports: Week(s): Location: Reports: Other Other HPI/Comments: Mr. Ragland is an 88 yo man who was admitted from the emergency room last evening for observation due to GI bleed. He has a history of GI bleed back in 2013, at which time he was on both aspirin 325 mg and xarelto for atrial fibrillation. He had upper and lower endoscopy at that time which revealed duodenal ulcers and dysplastic colon polyps. His anticoagulation was held and aspirin was not restarted and he was placed on PPI and H pylori treatment and his symptoms resolved. He reports a few week history now of dark black stool. In the emergency room he had a positive fecal occult blood test and Hgb was 13, which went down to 10.7 g /dL after hospitalization and IV fluids. He has no history of stroke. He has and AICD in place and has reportedly not been in A fib for some time. He had CARLOZ x 2 placed a few years ago (and he has a prior history of aortocoronary bypass). He denies any symptoms such as pain, dysphagia, unintentional weight loss, bright red blood per rectum. His last bowel movement was yesterday. Hgb was uptrending on last check. - Related Data Allergies/Adverse Reactions: Allergies Allergy/AdvReac Type Severity Reaction Status Date / Time clonidine Allergy Cannot Verified 12/30/18 16:31 Remember codeine Allergy Cannot Verified 12/30/18 16:31 Remember pravastatin Allergy Itching Verified 12/30/18 16:31 procainamide [Procainamide] Allergy Cannot Verified 12/30/18 16:31 Remember quinidine Allergy Anaphylactic Verified 12/30/18 16:31 Shock terazosin [Terazosin] Allergy Cannot Verified 12/30/18 16:31 Remember Home Medications: Home Meds Flaxseed [Flaxseed Oil] 1,000 mg PO DAILY 09/11/13 [History] Metoprolol Succinate 50 mg PO BID 09/11/13 [History] Multivitamin with Minerals [Multiple Vitamin] 1 tab PO DAILY 09/11/13 [History] [place]-3 Fatty Acids [[place]-3] 1,000 mg PO DAILY 09/11/13 [History] Pantoprazole Sodium [Protonix] 40 mg PO BID #60 suspdr.pkt 10/21/13 [Rx] Amiodarone HCl 100 mg PO DAILY 08/22/15 [History] Rivaroxaban [Xarelto] 20 mg PO DAILY 09/17/16 [History] Lisinopril 5 mg PO DAILY 12/31/18 [History] Past Medical History HEENT History: Reports: Hard of Hearing, Impaired Vision Other HEENT History: reading glasses,USES HEARING AIDES Cardiovascular History: Reports: Afib, Automatic Implantable Cardioverter Defibrillators, Bypass, CAD, Hypertension, Pacemaker, PTCA Other Cardiovascular History: CARDIOVERSION AND SUBSEQUENT ICD PLACEMENT Respiratory History: Reports: SOB Gastrointestinal History: Reports: GERD, GI Bleed Other Gastrointestinal History: Dark Stool Genitourinary History: Reports: Renal Disease Musculoskeletal History: Reports: Back Pain, Chronic, Other (See Below) Other Musculoskeletal History: shoulder pain right Hematologic History: Reports: Anemia, Other (See Below) Other Hematologic History: thrombocytopenia - Infectious Disease History Infectious Disease History: Reports: Chicken Pox, Measles, Mumps - Past Surgical History HEENT Surgical History: Reports: Cataract Surgery Cardiovascular Surgical History: Reports: AICD, Coronary Artery Bypass GI Surgical History: Reports: Appendectomy, Colonoscopy, Hernia Repair/Other Neurological Surgical History: Reports: Lumbar Spine Musculoskeletal Surgical History: Reports: Other (See Below) Social & Family History - Family History Family Medical History: Noncontributory Cardiac: Reports: [place] Hematologic: Reports: Anemia Other Hematologic Family History: thrombocytopenia Oncologic: Reports: Colon - Tobacco Use Smoking Status *Q: Former Smoker Years of Tobacco use: 10 Used Tobacco, but Quit: Yes Month/Year Tobacco Last Used: 03/1979 Second Hand Smoke Exposure: No - Caffeine Use Caffeine Use: Reports: Coffee - Alcohol Use Days Per Week of Alcohol Use: 1 Number of Drinks Per Day: 0 Total Drinks Per Week: 0 - Recreational Drug Use Recreational Drug Use: No - Living Situation & Occupation Living situation: Reports: Occupation: Retired H&P Review of Systems - Review of Systems: Review Of Systems: See Below General: Reports: No Symptoms HEENT: Reports: No Symptoms Pulmonary: Reports: No Symptoms Cardiovascular: Reports: No Symptoms Gastrointestinal: Reports: Melena Genitourinary: Reports: No Symptoms Musculoskeletal: Reports: No Symptoms Skin: Reports: No Symptoms Psychiatric: Reports: No Symptoms Neurological: Reports: No Symptoms Hematologic/Lymphatic: Reports: No Symptoms Immunologic: Reports: No Symptoms Exam - Exam Exam: See Below - Vital Signs Vital Signs: Last Vital Signs Temp 36.4 C 12/31/18 11:25 Pulse 50 L 12/31/18 11:25 Resp 20 12/31/18 11:25 BP 103/47 L 12/31/18 11:25 Pulse Ox 96 12/31/18 11:25 Orthostatic Blood Pressure [ 133/68 Standing] Orthostatic Blood Pressure [ 147/63 Sitting] Orthostatic Blood Pressure [ 135/57 Supine] Weight: 67.812 kg - Exam General: Alert, Oriented HEENT: Conjunctiva Clear Neck: Supple Lungs: Clear to Auscultation Cardiovascular: Regular Rate, Other (palpable radial pulse, regular rhythm, no murmur. Palpable AICD in subcutaneous tissue of left upper chest, sternotomy scar) GI/Abdominal Exam: Soft, Non-Tender, No Mass (Male) Exam: No Hernia Rectal (Males) Exam: Other (skin tag posteriorly. No visible or palpable hemorrhoid or mass. Gross melena on finger after digital exam. ) Back Exam: Other (lumbar spine surgical incision) Peripheral Pulses: 2+: Radial (L), Radial (R) Skin: Warm, Dry Neurological: Strength Equal Bilateral Neuro Extensive - Mental Status: Alert, Oriented x3 Psychiatric: Alert, Normal Affect - Patient Data Lab Results Last 24 hrs: Laboratory Results - last 24 hr 12/30/18 12/30/18 12/30/18 Range/Units 17:00 17:00 17:00 WBC 6.00 (4.23-9.07) K/mm3 RBC 4.36 L (4.63-6.08) M/mm3 Hgb 13.0 L D (13.7-17.5) gm/dl Hct 39.3 L (40.1-51.0) % MCV 90.1 D (79.0-92.2) fl MCH 29.8 (25.7-32.2) pg MCHC 33.1 (32.2-35.5) g/dl RDW Std Deviation 44.7 H (35.1-43.9) fL Plt Count 139 L (163-337) K/mm3 MPV 9.8 (9.4-12.3) fl Neut % (Auto) 41.5 (34.0-67.9) % Lymph % (Auto) 36.7 (21.8-53.1) % [place] % (Auto) 13.0 H (5.3-12.2) % Eos % (Auto) 8.5 H (0.8-7.0) Baso % (Auto) 0.3 (0.1-1.2) % Neut # (Auto) 2.49 (1.78-5.38) K/mm3 Lymph # (Auto) 2.20 (1.32-3.57) K/mm3 [place] # (Auto) 0.78 (0.30-0.82) K/mm3 Eos # (Auto) 0.51 (0.04-0.54) K/mm3 Baso # (Auto) 0.02 (0.01-0.08) K/mm3 Manual Slide Review PT 13.3 H (9.7-12.0) SECONDS INR 1.23 Sodium 141 (136-145) mEq/L Potassium 4.7 (3.5-5.1) mEq/L Chloride 104 (98-107) mEq/L Carbon Dioxide 28 (21-32) mEq/L Anion Gap 13.7 (5-15) BUN 27 H (7-18) mg/dL Creatinine 1.3 (0.7-1.3) mg/dL Est Cr Clr Drug Dosing 37.07 mL/min Estimated GFR (MDRD) 52 (>60) mL/min BUN/Creatinine Ratio 20.8 H (14-18) Glucose 102 (83-115) mg/dL Calcium 9.2 (8.5-10.1) mg/dL Magnesium (1.8-2.4) mg/dl Total Bilirubin 0.4 (0.2-1.0) mg/dL AST 28 (15-37) U/L ALT 33 (16-63) U/L Alkaline Phosphatase 71 (46-116) U/L Total Protein 6.6 (6.4-8.2) g/dl Albumin 3.7 (3.4-5.0) g/dl Globulin 2.9 gm/dL Albumin/Globulin Ratio 1.3 (1-2) Blood Type Gel Antibody Screen 12/30/18 12/30/18 12/31/18 Range/Units 17:00 21:10 04:25 WBC 4.48 (4.23-9.07) K/mm3 RBC 3.57 L (4.63-6.08) M/mm3 Hgb 12.9 L 10.6 L D (13.7-17.5) gm/dl Hct 39.2 L 32.2 L (40.1-51.0) % MCV 90.2 (79.0-92.2) fl MCH 29.7 (25.7-32.2) pg MCHC 32.9 (32.2-35.5) g/dl RDW Std Deviation 43.7 (35.1-43.9) fL Plt Count 96 L (163-337) K/mm3 MPV 9.7 (9.4-12.3) fl Neut % (Auto) 39.6 (34.0-67.9) % Lymph % (Auto) 38.4 (21.8-53.1) % [place] % (Auto) 12.7 H (5.3-12.2) % Eos % (Auto) 8.7 H (0.8-7.0) Baso % (Auto) 0.4 (0.1-1.2) % Neut # (Auto) 1.77 L (1.78-5.38) K/mm3 Lymph # (Auto) 1.72 (1.32-3.57) K/mm3 [place] # (Auto) 0.57 (0.30-0.82) K/mm3 Eos # (Auto) 0.39 (0.04-0.54) K/mm3 Baso # (Auto) 0.02 (0.01-0.08) K/mm3 Manual Slide Review Abnormal smear PT (9.7-12.0) SECONDS INR Sodium (136-145) mEq/L Potassium (3.5-5.1) mEq/L Chloride (98-107) mEq/L Carbon Dioxide (21-32) mEq/L Anion Gap (5-15) BUN (7-18) mg/dL Creatinine (0.7-1.3) mg/dL Est Cr Clr Drug Dosing mL/min Estimated GFR (MDRD) (>60) mL/min BUN/Creatinine Ratio (14-18) Glucose (83-115) mg/dL Calcium (8.5-10.1) mg/dL Magnesium (1.8-2.4) mg/dl Total Bilirubin (0.2-1.0) mg/dL AST (15-37) U/L ALT (16-63) U/L Alkaline Phosphatase (46-116) U/L Total Protein (6.4-8.2) g/dl Albumin (3.4-5.0) g/dl Globulin gm/dL Albumin/Globulin Ratio (1-2) Blood Type O POSITIVE Gel Antibody Screen Negative 12/31/18 12/31/18 Range/Units 04:25 10:50 WBC (4.23-9.07) K/mm3 RBC (4.63-6.08) M/mm3 Hgb 11.7 L (13.7-17.5) gm/dl Hct (40.1-51.0) % MCV (79.0-92.2) fl MCH (25.7-32.2) pg MCHC (32.2-35.5) g/dl RDW Std Deviation (35.1-43.9) fL Plt Count (163-337) K/mm3 MPV (9.4-12.3) fl Neut % (Auto) (34.0-67.9) % Lymph % (Auto) (21.8-53.1) % [place] % (Auto) (5.3-12.2) % Eos % (Auto) (0.8-7.0) Baso % (Auto) (0.1-1.2) % Neut # (Auto) (1.78-5.38) K/mm3 Lymph # (Auto) (1.32-3.57) K/mm3 [place] # (Auto) (0.30-0.82) K/mm3 Eos # (Auto) (0.04-0.54) K/mm3 Baso # (Auto) (0.01-0.08) K/mm3 Manual Slide Review PT (9.7-12.0) SECONDS INR Sodium 141 (136-145) mEq/L Potassium 3.9 (3.5-5.1) mEq/L Chloride 107 (98-107) mEq/L Carbon Dioxide 26 (21-32) mEq/L Anion Gap 11.9 (5-15) BUN 23 H (7-18) mg/dL Creatinine 1.1 (0.7-1.3) mg/dL Est Cr Clr Drug Dosing 43.67 mL/min Estimated GFR (MDRD) > 60 (>60) mL/min BUN/Creatinine Ratio 20.9 H (14-18) Glucose 86 (83-115) mg/dL Calcium 8.6 (8.5-10.1) mg/dL Magnesium 1.7 L (1.8-2.4) mg/dl Total Bilirubin 0.4 (0.2-1.0) mg/dL AST 26 (15-37) U/L ALT 24 (16-63) U/L Alkaline Phosphatase 53 (46-116) U/L Total Protein 5.1 L (6.4-8.2) g/dl Albumin 2.9 L (3.4-5.0) g/dl Globulin 2.2 gm/dL Albumin/Globulin Ratio 1.3 (1-2) Blood Type Gel Antibody Screen Result Diagrams: 12/31/18 10:50 12/31/18 04:25 Consult PN Assessment/Plan Procedures: Procedures ASSAY OF DIGOXIN TOTAL (04/12/14) ASSAY OF MAGNESIUM (09/11/13) ASSAY OF NATRIURETIC PEPTIDE (04/12/14) ASSAY OF TROPONIN QUANT (08/24/15) ASSAY THYROID STIM HORMONE (09/11/13) CARDIOVERSION ELECTRIC EXT (04/12/14) CATARACT SURG W/IOL 1 STAGE (10/25/16) CHEST X-RAY 1 VIEW FRONTAL (04/12/14) CO/MEMBANE DIFFUSE CAPACITY (04/15/18) COLONOSCOPY AND BIOPSY (09/08/15) COMPLETE CBC AUTOMATED (08/24/15) COMPLETE CBC W/AUTO DIFF WBC (08/24/15) COMPREHEN METABOLIC PANEL (08/24/15) CREATINE MB FRACTION (04/12/14) CT UPPER EXTREMITY W/O DYE (08/24/15) EGD BIOPSY SINGLE/MULTIPLE (10/21/13) ELECTROCARDIOGRAM TRACING (04/12/14) EMERGENCY DEPT VISIT (08/22/15) EMERGENCY DEPT VISIT (04/12/14) EVALUATION OF WHEEZING (04/15/18) GAIT TRAINING THERAPY (08/24/15) HYDRATE IV INFUSION ADD-ON (04/10/14) HYDRATION IV INFUSION INIT (04/10/14) MEASURE BLOOD OXYGEN LEVEL (09/11/13) METABOLIC PANEL TOTAL CA (04/10/14) OT EVALUATION (08/24/15) PROTHROMBIN TIME (08/24/15) PT EVALUATION (08/24/15) ROUTINE VENIPUNCTURE (08/24/15) THER/PROPH/DIAG INJ SC/IM (09/11/13) THER/PROPH/DIAG IV INF ADDON (04/12/14) THER/PROPH/DIAG IV INF INIT (04/12/14) THERAPEUTIC ACTIVITIES (08/24/15) THROMBOPLASTIN TIME PARTIAL (04/10/14) TISSUE EXAM BY PATHOLOGIST (10/21/13) TTE W/DOPPLER COMPLETE (08/24/15) TX/PRO/DX INJ NEW DRUG ADDON (04/12/14) TX/PRO/DX INJ SAME DRUG SLAB LIFTING ENGINEER (08/24/15) Problem List Initiated/Reviewed/Updated: Yes Plan: GI bleed in patient on xarelto for atrial fibrillation. Similar episode a few years ago with diagnosis of peptic ulcer disease. Asymptomatic currently, with Stable/rising Hgb on serial labs. Agree with PPI therapy and holding xarelto. Recommend against inpatient endoscopy given the patient is clinically stable with improving Hgb with correction of coagulopathy; follow up with his emergency management system director regarding anticoagulation regimen/dosing after discharge.
[2018-12-31 15:43] VITALS: BP 131/79
--- NOTE | 2018-12-31 16:52 | PCM.DCSUM1 ---
Discharge Summary - Hospital Course Brief History: Came to the ED complaining of dark stools for 2 weeks, acutely worsening day prior to consultation Diagnosis: Stroke: No - Discharge Data Discharge Date: 12/31/18 Discharge Disposition: Home, Self-Care 01 Condition: Good - Referral to Home Health Primary Care Physician: Negro De Leon Jr, MD - Discharge Diagnosis/Problem(s) (1) Upper GI hemorrhage SNOMED Code(s): 25355088 ICD Code: K92.2 - GASTROINTESTINAL HEMORRHAGE, UNSPECIFIED Status: Acute Priority: Medium Current Visit: Yes Problem Details: Hb 13 on admission no further hematochezia or melena Stable Hb (2) Anemia SNOMED Code(s): 307804259 ICD Code: D64.9 - ANEMIA, UNSPECIFIED Status: Acute Current Visit: No Qualifiers: Other causes of anemia: other cause, not classified Qualified Code(s): D64.89 - Other specified anemias (3) Atrial fibrillation SNOMED Code(s): 66297422 ICD Code: I48.91 - UNSPECIFIED ATRIAL FIBRILLATION Status: Acute Current Visit: Yes (4) Pacemaker SNOMED Code(s): 801133622 ICD Code: Z95.0 - PRESENCE OF CARDIAC PACEMAKER Status: Acute Current Visit: Yes (5) Hypertension SNOMED Code(s): 97403337 ICD Code: I10 - ESSENTIAL (PRIMARY) HYPERTENSION Status: Acute Current Visit: Yes - Patient Summary/Data Consults: Consultations 12/31/18 12:06 Consult to Physician [CONS] Stat Hospital Course: Patient was admitted for hb monitorization Hb trend was stable Due to Hb drop in the AM a status changed from observation to inpatient was made however upon repeating this value returned normal so patient was discharged to follow up with his PCP with new labs and possible referral to GI specialist. - Patient Instructions Activity: As Tolerated Other/Special Instructions: DISCHARGE INSTRUCTIONS TO PATIENT. 1. Please make sure to follow up with your primary care provider on 01/05/19. 2. Please make sure to follow up with voice data communications engineer. 3. As we discussed you will need to STOP TAKING YOUR XARELTO until otherwise indicated by either your primary care provider or your voice data communications engineer. 4. I have added Famotidine to your medication regimen this medication also helps with acid reflux and acid production in your stomach. 5. Please continue to take all your medications as you were taking them previously EXCEPT for the Lisinopril which I recommend you take at night due to its increased efficacy if you do so. 6. AVoid drinking alcohol or smoking or using any illicit drugs. 7. Do not drive until cleared by your PCP. 8. Ambulate with assistance at home. 9. Please make sure your PCP requests the records of the blood work that was done here prior to discharge. 10. If you have any recurrence of your symptoms or feel any worsening please go back to your PCP's office or come to the ED for further evaluation. 11. Please follow a diet that consists of low carb, low fat. 12. Weight loss and physical activity as tolerated is recommended - Discharge Plan *PRESCRIPTION DRUG MONITORING PROGRAM REVIEWED*: Not Applicable *COPY OF PRESCRIPTION DRUG MONITORING REPORT IN PATIENT ANDRES: Not Applicable Prescriptions/Med Rec: Famotidine [Acid Controller] 20 mg PO DAILY 30 Days #30 tablet Lisinopril [Prinivil] 5 mg PO BEDTIME 30 Days #30 tablet Home Medications: Home Meds Flaxseed [Flaxseed Oil] 1,000 mg PO DAILY 09/11/13 [History] Metoprolol Succinate 50 mg PO BID 09/11/13 [History] Multivitamin with Minerals [Multiple Vitamin] 1 tab PO DAILY 09/11/13 [History] [place]-3 Fatty Acids [[place]-3] 1,000 mg PO DAILY 09/11/13 [History] Pantoprazole Sodium [Protonix] 40 mg PO BID #60 suspdr.pkt 10/21/13 [Rx] Amiodarone HCl 100 mg PO DAILY 08/22/15 [History] Famotidine [Acid Controller] 20 mg PO DAILY 30 Days #30 tablet 12/31/18 [Rx] Lisinopril [Prinivil] 5 mg PO BEDTIME 30 Days #30 tablet 12/31/18 [Rx] Oxygen Therapy Mode: Room Air Patient Handouts: Famotidine tablets or gelcaps, Gastrointestinal Bleeding, [id number] Forms: ED Department Discharge Referrals: Negro De Leon Jr, MD [Primary Care Provider] - 01/05/19 8:30 am (Please follow- up with your primary care provider on SaturdayJanuary 05 at 0830am. ) - Discharge Summary/Plan Comment DC Time >30 min.: Yes - General Info Date of Service: 12/31/18 Subjective Update: Feels ok No further melenous bowel movements No dizziness, shortness of breath, chest pain, palpitations - Patient Data Vitals - Most Recent: Last Vital Signs Temp 36.4 C 12/31/18 15:12 Pulse 50 L 12/31/18 15:12 Resp 16 12/31/18 15:12 BP 131/79 12/31/18 15:12 Pulse Ox 99 12/31/18 15:12 Orthostatic Blood Pressure [ 133/68 Standing] Orthostatic Blood Pressure [ 147/63 Sitting] Orthostatic Blood Pressure [ 135/57 Supine] Weight - Most Recent: 67.812 kg I&O - Last 24 hours: Intake & Output 12/31/18 12/31/18 12/31/18 06:59 14:59 22:59 Intake Total 850 380 200 Output Total 1000 1350 Balance -150 380 -1150 Lab Results - Last 24 hrs: Laboratory Results - last 24 hr 12/30/18 12/30/18 12/30/18 Range/Units 17:00 17:00 17:00 WBC 6.00 (4.23-9.07) K/mm3 RBC 4.36 L (4.63-6.08) M/mm3 Hgb 13.0 L D (13.7-17.5) gm/dl Hct 39.3 L (40.1-51.0) % MCV 90.1 D (79.0-92.2) fl MCH 29.8 (25.7-32.2) pg MCHC 33.1 (32.2-35.5) g/dl RDW Std Deviation 44.7 H (35.1-43.9) fL Plt Count 139 L (163-337) K/mm3 MPV 9.8 (9.4-12.3) fl Neut % (Auto) 41.5 (34.0-67.9) % Lymph % (Auto) 36.7 (21.8-53.1) % [place] % (Auto) 13.0 H (5.3-12.2) % Eos % (Auto) 8.5 H (0.8-7.0) Baso % (Auto) 0.3 (0.1-1.2) % Neut # (Auto) 2.49 (1.78-5.38) K/mm3 Lymph # (Auto) 2.20 (1.32-3.57) K/mm3 [place] # (Auto) 0.78 (0.30-0.82) K/mm3 Eos # (Auto) 0.51 (0.04-0.54) K/mm3 Baso # (Auto) 0.02 (0.01-0.08) K/mm3 Manual Slide Review PT 13.3 H (9.7-12.0) SECONDS INR 1.23 Sodium 141 (136-145) mEq/L Potassium 4.7 (3.5-5.1) mEq/L Chloride 104 (98-107) mEq/L Carbon Dioxide 28 (21-32) mEq/L Anion Gap 13.7 (5-15) BUN 27 H (7-18) mg/dL Creatinine 1.3 (0.7-1.3) mg/dL Est Cr Clr Drug Dosing 37.07 mL/min Estimated GFR (MDRD) 52 (>60) mL/min BUN/Creatinine Ratio 20.8 H (14-18) Glucose 102 (83-115) mg/dL Calcium 9.2 (8.5-10.1) mg/dL Magnesium (1.8-2.4) mg/dl Total Bilirubin 0.4 (0.2-1.0) mg/dL AST 28 (15-37) U/L ALT 33 (16-63) U/L Alkaline Phosphatase 71 (46-116) U/L Total Protein 6.6 (6.4-8.2) g/dl Albumin 3.7 (3.4-5.0) g/dl Globulin 2.9 gm/dL Albumin/Globulin Ratio 1.3 (1-2) Blood Type Gel Antibody Screen 12/30/18 12/30/18 12/31/18 Range/Units 17:00 21:10 04:25 WBC 4.48 (4.23-9.07) K/mm3 RBC 3.57 L (4.63-6.08) M/mm3 Hgb 12.9 L 10.6 L D (13.7-17.5) gm/dl Hct 39.2 L 32.2 L (40.1-51.0) % MCV 90.2 (79.0-92.2) fl MCH 29.7 (25.7-32.2) pg MCHC 32.9 (32.2-35.5) g/dl RDW Std Deviation 43.7 (35.1-43.9) fL Plt Count 96 L (163-337) K/mm3 MPV 9.7 (9.4-12.3) fl Neut % (Auto) 39.6 (34.0-67.9) % Lymph % (Auto) 38.4 (21.8-53.1) % [place] % (Auto) 12.7 H (5.3-12.2) % Eos % (Auto) 8.7 H (0.8-7.0) Baso % (Auto) 0.4 (0.1-1.2) % Neut # (Auto) 1.77 L (1.78-5.38) K/mm3 Lymph # (Auto) 1.72 (1.32-3.57) K/mm3 [place] # (Auto) 0.57 (0.30-0.82) K/mm3 Eos # (Auto) 0.39 (0.04-0.54) K/mm3 Baso # (Auto) 0.02 (0.01-0.08) K/mm3 Manual Slide Review Abnormal smear PT (9.7-12.0) SECONDS INR Sodium (136-145) mEq/L Potassium (3.5-5.1) mEq/L Chloride (98-107) mEq/L Carbon Dioxide (21-32) mEq/L Anion Gap (5-15) BUN (7-18) mg/dL Creatinine (0.7-1.3) mg/dL Est Cr Clr Drug Dosing mL/min Estimated GFR (MDRD) (>60) mL/min BUN/Creatinine Ratio (14-18) Glucose (83-115) mg/dL Calcium (8.5-10.1) mg/dL Magnesium (1.8-2.4) mg/dl Total Bilirubin (0.2-1.0) mg/dL AST (15-37) U/L ALT (16-63) U/L Alkaline Phosphatase (46-116) U/L Total Protein (6.4-8.2) g/dl Albumin (3.4-5.0) g/dl Globulin gm/dL Albumin/Globulin Ratio (1-2) Blood Type O POSITIVE Gel Antibody Screen Negative 12/31/18 12/31/18 12/31/18 Range/Units 04:25 10:50 15:40 WBC (4.23-9.07) K/mm3 RBC (4.63-6.08) M/mm3 Hgb 11.7 L 12.0 L (13.7-17.5) gm/dl Hct 37.0 L (40.1-51.0) % MCV (79.0-92.2) fl MCH (25.7-32.2) pg MCHC (32.2-35.5) g/dl RDW Std Deviation (35.1-43.9) fL Plt Count (163-337) K/mm3 MPV (9.4-12.3) fl Neut % (Auto) (34.0-67.9) % Lymph % (Auto) (21.8-53.1) % [place] % (Auto) (5.3-12.2) % Eos % (Auto) (0.8-7.0) Baso % (Auto) (0.1-1.2) % Neut # (Auto) (1.78-5.38) K/mm3 Lymph # (Auto) (1.32-3.57) K/mm3 [place] # (Auto) (0.30-0.82) K/mm3 Eos # (Auto) (0.04-0.54) K/mm3 Baso # (Auto) (0.01-0.08) K/mm3 Manual Slide Review PT (9.7-12.0) SECONDS INR Sodium 141 (136-145) mEq/L Potassium 3.9 (3.5-5.1) mEq/L Chloride 107 (98-107) mEq/L Carbon Dioxide 26 (21-32) mEq/L Anion Gap 11.9 (5-15) BUN 23 H (7-18) mg/dL Creatinine 1.1 (0.7-1.3) mg/dL Est Cr Clr Drug Dosing 43.67 mL/min Estimated GFR (MDRD) > 60 (>60) mL/min BUN/Creatinine Ratio 20.9 H (14-18) Glucose 86 (83-115) mg/dL Calcium 8.6 (8.5-10.1) mg/dL Magnesium 1.7 L (1.8-2.4) mg/dl Total Bilirubin 0.4 (0.2-1.0) mg/dL AST 26 (15-37) U/L ALT 24 (16-63) U/L Alkaline Phosphatase 53 (46-116) U/L Total Protein 5.1 L (6.4-8.2) g/dl Albumin 2.9 L (3.4-5.0) g/dl Globulin 2.2 gm/dL Albumin/Globulin Ratio 1.3 (1-2) Blood Type Gel Antibody Screen
[2018-12-31] MEDS ORDERED: Metoprolol Succinate 50 MG Tab.ER PO SCH (21:00)
[2019-01-01] MEDS ORDERED: Amiodarone 200 MG Tab PO SCH (09:00)
[2019-01-01] MEDS ORDERED: Lisinopril 5 MG Tab PO SCH (09:00)
== END 2018-12-31 17:18 | disposition home or self-care (01) ==
LOC: JD.ED 16:11 → JD.MS 19:50 → OBSVTOIN 12-31 11:03 → INTOOBSV 12-31 11:03
PROVIDERS: ADMIT Family Medicine; ATTEND Family Medicine
DX: D68.32 Hemorrhagic disorder due to extrinsic circulating anticoagulants (principal); K92.2 Gastrointestinal hemorrhage, unspecified; T45.515A Adverse effect of anticoagulants, initial encounter; D64.89 Other specified anemias; I48.91 Unspecified atrial fibrillation; K21.9 Gastro-esophageal reflux disease without esophagitis; I12.9 Hypertensive chronic kidney disease with stage 1 through stage 4 chronic kidney disease, or unspecified chronic kidney disease; N18.9 Chronic kidney disease, unspecified; I25.10 Atherosclerotic heart disease of native coronary artery without angina pectoris; Z95.0 Presence of cardiac pacemaker; Z79.01 Long term (current) use of anticoagulants; Z88.8 Allergy status to other drugs, medicaments and biological substances; Z88.5 Allergy status to narcotic agent; Z90.49 Acquired absence of other specified parts of digestive tract; Z87.891 Personal history of nicotine dependence; Z79.899 Other long term (current) drug therapy
CPT/HCPCS: 36415; 80053; 82607; 82746; 83540; 83735; 84466; 85014; 85018; 85025; 85045; 85610; 86850; 86900; 86901; 93005; 96374; 99285; A9270; C9113; J3475; J7120; 93010; 96361; 96365; 96366; 96375; 96376; 99284; G0378